=== PATIENT | female | born 1935 | race Caucasian/White ===

== ENCOUNTER 2016-06-25 14:57 | Emergency (ER) | payer MEDICARE, MEDICAID ==
[2016-06-25 15:11] VITALS: BP 135/80
[2016-06-25] MEDS ORDERED: Sodium Chloride 0.9% 1,000 ML IV ONE ×2 (16:29→17:31)
--- NOTE | 2016-06-25 16:37 | EDM.PDOC ---
ED HPI GENERAL MEDICAL PROBLEM - General Chief Complaint: General Stated Complaint: [facility] Time Seen by Provider: 06/25/16 16:05 Source of Information: Reports: custodial records, RN notes reviewed History Limitations: Reports: Altered Mental Status - History of Present Illness INITIAL COMMENTS - FREE TEXT/NARRATIVE: According to the [facility] papers, the patient was diagnosed with influenza B on 06/18/2016. She completed a five-day course of Tamiflu, apparently without improvement in her symptoms. She now presents to the ED with a report from the [facility] with difficulty swallowing, acute kidney injury, and elevated INR/PT on the labs obtained today. Reviewing the patient's lab work, we find that the patient has a WBC count of 14.9, with no differential. Hemoglobin is elevated at 16.2 with hematocrit elevated at 49.8. Platelets are within normal limits. A basic metabolic panel demonstrates sodium elevated at 154, potassium depressed at 2.5. BUN is elevated at 213 with a creatinine elevated at 5.3. Blood glucose is elevated at 317. Calcium is elevated at 10.7. The patient's INR is elevated at >7.0 with a protime elevated at >75.0. A BNP is modestly elevated at 293. A portable chest radiograph is read as "Pacemaker generator and generator leads unchanged. Mild cardiac enlargement. Normal vasculature. No acute infiltrate or pleural fluid." - Related Data Allergies Allergy/AdvReac Type Severity Reaction Status Date / Time No Known Allergies Allergy Verified 06/25/16 15:12 Home Meds: Home Meds Allopurinol [Zyloprim] 150 mg PO DAILY 06/25/15 [History] Carvedilol [Coreg] 25 mg PO BID 06/25/15 [History] Warfarin Sodium [Coumadin] 2.5 mg PO ASDIRECTED 06/25/15 [History] Warfarin Sodium [Coumadin] 5 mg PO WE 06/25/15 [History] Acetaminophen [Tylenol Arthritis] 650 mg PO BID 04/02/16 [History] Ammonia Solution, Strong/MSM [Penetran + Plus 1.5%] applic TOP TID 04/02/16 [ History] Ascorbic Acid [Vitamin C] 125 mg PO DAILY 04/02/16 [History] Cetirizine [ZyrTEC] 10 mg PO DAILY 04/02/16 [History] Cholecalciferol (Vitamin D3) [Vitamin D3] 3,000 units PO DAILY 04/02/16 [History ] Cyclobenzaprine [Flexeril] 5 mg PO BID 04/02/16 [History] Docusate Sodium/Sennosides [Senna Plus] 2 tab PO ASDIRECTED PRN 04/02/16 [ History] Donepezil HCl [Aricept] 15 mg PO DAILY 04/02/16 [History] Furosemide [Lasix] 20 mg PO BID 04/02/16 [History] Insulin Lispro Prot/Lispro [HumaLOG Mix 75-25] 5 units SUBCUT DAILY 04/02/16 [ History] Insulin Lispro Prot/Lispro [HumaLOG Mix 75-25] 7 units SUBCUT DAILY 04/02/16 [ History] Sertraline [Zoloft] 50 mg PO DAILY 04/02/16 [History] atorvaSTATin [Lipitor] 20 mg PO DAILY 04/02/16 [History] traMADol [Ultram] 50 mg PO BID 04/02/16 [History] Colchicine 0.6 mg PO ASDIRECTED 06/25/16 [History] Febuxostat [Uloric] 40 mg PO DAILY 06/25/16 [History] Losartan [Cozaar] 25 mg PO DAILY 06/25/16 [History] Metolazone 5 mg PO WE 06/25/16 [History] Oseltamivir [Tamiflu] 75 mg PO BID 06/25/16 [History] Past Medical History HEENT History: Reports: Allergic rhinitis, Hard of hearing, Impaired vision Cardiovascular History: Reports: Blood clots/VTE/DVT, Heart Failure, High cholesterol, Hypertension, PVD Respiratory History: Reports: PE Genitourinary History: Reports: Chronic renal insuffiency, Urinary incontinence Musculoskeletal History: Reports: Gout, Osteoarthritis, Osteoporosis Neurological History: Reports: Other (see below) (Dementia) Psychiatric History: Reports: Depression Endocrine/Metabolic History: Reports: Diabetes, type II Hematologic History: Reports: Anemia, Iron deficiency - Past Surgical History HEENT Surgical History: Reports: Cataract surgery GI Surgical History: Reports: Cholecystectomy Female Surgical History: Reports: Hysterectomy Musculoskeletal Surgical History: Reports: Knee replacement Social & Family History - Family History Cardiac: Reports: Other (see below) Other Cardiac Family History: two sisters of heart problems - Tobacco Use Smoking Status *Q: Former Smoker Used Tobacco, but Quit: Yes Month Tobacco Last Used: 1962 - Recreational Drug Use Recreational Drug Use: No - Living Situation & Occupation Living situation: Reports: alone Occupation: retired (Residing in [facility] which is a assisted-living [facility].) ED ROS GENERAL - Review of Systems Review Of Systems: Unable To Obtain ED EXAM, GENERAL - Physical Exam Exam: See Below Exam Limited By: No Limitations General Appearance: WD/WN, No Apparent Distress Eye Exam: Bilateral Eye: Normal Inspection Ears: Normal External Exam, Hearing Grossly Normal Ear Exam: Bilateral Ear: Auricle Normal Nose: Normal Inspection, No Blood Throat/Mouth: Normal Inspection, Normal Lips, No Airway Compromise Head: Atraumatic, Normocephalic Neck: Normal Inspection, Full Range of Motion Respiratory/Chest: No Respiratory Distress, Lungs Clear, Normal Breath Sounds, No Accessory Muscle Use Cardiovascular: Normal Peripheral Pulses, Regular Rate, Rhythm, No Gallop, No JVD, No Murmur, No Rub Peripheral Pulses: 4+: Radial (L), Radial (R) GI/Abdominal: Normal Bowel Sounds, Soft, Non-Tender, No Organomegaly, No Distention, No Abnormal Bruit, No Mass (Female) Exam: Deferred Rectal (Female) Exam: Deferred Back Exam: Normal Inspection, Full Range of Motion, NT Extremities: Normal Inspection, Normal Range of Motion, Normal Capillary Refill , Other (Bilateral knee-high TEDS hose on) Neurological: No Motor/Sensory Deficits Psychiatric: Normal Affect Skin Exam: Warm, Dry, Intact, Normal Color, No Rash Lymphatic: No Adenopathy EKG INTERPRETATION EKG Date: 06/25/16 Time: 16:52 Rhythm: other (Atrially sensed, ventricularly paced) Rate (beats/min): 84 Comparison: NA - no prior EKG Course - Vital Signs Last Recorded V/S: Last Vital Signs Temp 36.3 C 06/25/16 15:06 Pulse 87 06/25/16 15:06 Resp 16 06/25/16 15:06 BP 135/80 06/25/16 15:06 Pulse Ox 95 06/25/16 15:06 - Orders/Labs/Meds Orders: Active Orders 24 hr Category Date Time Status EKG Documentation Completion [RC] STAT Care 06/25/16 16:29 Active Chest 1V Frontal [CR] Stat Exams 06/25/16 16:27 Taken CBC WITH AUTO DIFF [HEME] Stat Lab 06/25/16 16:03 Results CBC WITH MANUAL DIFF [HEME] Stat Lab 06/25/16 16:03 Results CULTURE BLOOD [BC] Stat Lab 06/25/16 16:03 Received CULTURE BLOOD [BC] Stat Lab 06/25/16 16:09 Received CULTURE URINE [RM] Stat Lab 06/25/16 16:45 Received Levofloxacin/Dextrose 5%-Water [Levaquin in D5W 250 MG/ Med 06/25/16 18:17 Active 50 ML] 250 mg Premix Bag 1 bag IV ONETIME Potassium Chloride [KCl 10 MEQ in Water 100 ML] 10 meq Med 06/25/16 16:45 Active Premix Bag 1 bag IV Q1H Sodium Chloride 0.9% [Normal Saline] 1,000 ml Med 06/25/16 17:15 Active IV ASDIRECTED Medication Orders Potassium Chloride 10 meq/ (Premix) 100 mls @ 100 mls/hr IV Q1H AARON Stop: 06/25/16 20:44 Last Admin: 06/25/16 18:46 Dose: 100 mls/hr Infusion: 06/25/16 18:46 Dose: 100 mls/hr Admin: 06/25/16 18:24 Dose: 100 mls/hr Infusion: 06/25/16 18:24 Dose: 100 mls/hr Admin: 06/25/16 17:25 Dose: 100 mls/hr Sodium Chloride (Normal Saline) 1,000 mls @ 100 mls/hr IV ASDIRECTED AARON Last Admin: 06/25/16 17:25 Dose: 100 mls/hr Levofloxacin/Dextrose 250 mg/ (Premix) 50 mls @ 50 mls/hr IV ONETIME ONE Stop: 06/25/16 19:16 Last Admin: 06/25/16 18:45 Dose: 50 mls/hr Labs: Laboratory Tests 06/25/16 06/25/16 06/25/16 Range/Units 16:03 16:03 16:03 WBC 14.82 H (3.98-10.04) K/mm3 RBC 5.10 (3.98-5.22) M/mm3 Hgb 16.0 H (11.2-15.7) gm/L Hct 50.2 H (34.1-44.9) % MCV 98.4 H (79.4-94.8) fl MCH 31.4 (25.6-32.2) pg MCHC 31.9 L (32.2-35.5) g/dl RDW Std Deviation 50.5 H (36.4-46.3) fL Plt Count 284 (182-369) K/mm3 MPV 10.4 (9.4-12.3) fl Neut % (Auto) 79.5 H (34.0-71.1) % Lymph % (Auto) 13.9 L (19.3-51.7) % [place] % (Auto) 5.8 (4.7-12.5) % Eos % (Auto) 0.3 L (0.7-5.8) Baso % (Auto) 0.1 (0.1-1.2) % Neut # (Auto) 11.79 H (1.56-6.13) K/mm3 Lymph # (Auto) 2.06 (1.18-3.74) K/mm3 [place] # (Auto) 0.86 H (0.24-0.36) K/mm3 Eos # (Auto) 0.04 (0.04-0.36) K/mm3 Baso # (Auto) 0.01 (0.01-0.08) K/mm3 PT (8.0-13.0) SECONDS INR APTT (22-36) SECONDS Sodium 153 H (136-145) mEq/L Potassium 2.4 L* (3.5-5.1) mEq/L Chloride 109 H (98-107) mEq/L Carbon Dioxide 34 H (21-32) mEq/L Anion Gap 12.4 (5-15) BUN 224 H (7-18) mg/dL Creatinine 5.2 H (0.55-1.02) mg/dL Est Cr Clr Drug Dosing 8.72 mL/min Estimated GFR (MDRD) 8 (>60) mL/min BUN/Creatinine Ratio 43.1 H (14-18) Glucose 174 H (83-115) mg/dL Lactic Acid (0.4-2.0) mmol/L Calcium 10.8 H (8.5-10.1) mg/dL Magnesium 3.1 H (1.8-2.4) mg/dl Total Bilirubin (0.2-1.0) mg/dL Direct Bilirubin (0.0-0.2) mg/dl Indirect Bilirubin AST (15-37) U/L ALT (14-59) U/L Alkaline Phosphatase (46-116) U/L Troponin I 0.649 H* (0.00-0.056) ng/mL Total Protein (6.4-8.2) g/dl Albumin (3.4-5.0) g/dl Globulin gm/dL Albumin/Globulin Ratio (1-2) Urine Color (Yellow) Urine Appearance (Clear) Urine pH (5.0-8.0) Ur Specific [place] (1.005-1.030) Urine Protein (Negative) Urine Glucose (UA) (Negative) Urine Ketones (Negative) Urine Occult Blood (Negative) Urine Nitrite (Negative) Urine Bilirubin (Negative) Urine Urobilinogen (0.2-1.0) Ur Leukocyte Esterase (Negative) Urine RBC (0-5) /hpf Urine WBC (0-5) /hpf Ur Epithelial Cells (0-5) /hpf Amorphous Sediment (NOT SEEN) /hpf Urine Bacteria (FEW) /hpf Broad Casts Urine Mucus (FEW) /hpf 06/25/16 06/25/16 06/25/16 Range/Units 16:03 16:03 16:45 WBC (3.98-10.04) K/mm3 RBC (3.98-5.22) M/mm3 Hgb (11.2-15.7) gm/L Hct (34.1-44.9) % MCV (79.4-94.8) fl MCH (25.6-32.2) pg MCHC (32.2-35.5) g/dl RDW Std Deviation (36.4-46.3) fL Plt Count (182-369) K/mm3 MPV (9.4-12.3) fl Neut % (Auto) (34.0-71.1) % Lymph % (Auto) (19.3-51.7) % [place] % (Auto) (4.7-12.5) % Eos % (Auto) (0.7-5.8) Baso % (Auto) (0.1-1.2) % Neut # (Auto) (1.56-6.13) K/mm3 Lymph # (Auto) (1.18-3.74) K/mm3 [place] # (Auto) (0.24-0.36) K/mm3 Eos # (Auto) (0.04-0.36) K/mm3 Baso # (Auto) (0.01-0.08) K/mm3 PT (8.0-13.0) SECONDS INR APTT (22-36) SECONDS Sodium (136-145) mEq/L Potassium (3.5-5.1) mEq/L Chloride (98-107) mEq/L Carbon Dioxide (21-32) mEq/L Anion Gap (5-15) BUN (7-18) mg/dL Creatinine (0.55-1.02) mg/dL Est Cr Clr Drug Dosing mL/min Estimated GFR (MDRD) (>60) mL/min BUN/Creatinine Ratio (14-18) Glucose (83-115) mg/dL Lactic Acid 1.6 (0.4-2.0) mmol/L Calcium (8.5-10.1) mg/dL Magnesium (1.8-2.4) mg/dl Total Bilirubin 0.3 (0.2-1.0) mg/dL Direct Bilirubin 0.10 (0.0-0.2) mg/dl Indirect Bilirubin 0.20 AST 47 H (15-37) U/L ALT 32 (14-59) U/L Alkaline Phosphatase 92 (46-116) U/L Troponin I (0.00-0.056) ng/mL Total Protein 7.7 (6.4-8.2) g/dl Albumin 3.5 (3.4-5.0) g/dl Globulin 4.2 gm/dL Albumin/Globulin Ratio 0.8 L (1-2) Urine Color Brown H (Yellow) Urine Appearance Turbid H (Clear) Urine pH 8.5 H (5.0-8.0) Ur Specific [place] 1.015 (1.005-1.030) Urine Protein 3+ H (Negative) Urine Glucose (UA) Negative (Negative) Urine Ketones Trace H (Negative) Urine Occult Blood 3+ H (Negative) Urine Nitrite Positive H (Negative) Urine Bilirubin 2+ H (Negative) Urine Urobilinogen 1.0 (0.2-1.0) Ur Leukocyte Esterase 3+ H (Negative) Urine RBC 20-30 H (0-5) /hpf Urine WBC 5-10 H (0-5) /hpf Ur Epithelial Cells Not seen (0-5) /hpf Amorphous Sediment Many H (NOT SEEN) /hpf Urine Bacteria Many H (FEW) /hpf Broad Casts Rare Urine Mucus Not seen (FEW) /hpf 06/25/16 Range/Units 17:20 WBC (3.98-10.04) K/mm3 RBC (3.98-5.22) M/mm3 Hgb (11.2-15.7) gm/L Hct (34.1-44.9) % MCV (79.4-94.8) fl MCH (25.6-32.2) pg MCHC (32.2-35.5) g/dl RDW Std Deviation (36.4-46.3) fL Plt Count (182-369) K/mm3 MPV (9.4-12.3) fl Neut % (Auto) (34.0-71.1) % Lymph % (Auto) (19.3-51.7) % [place] % (Auto) (4.7-12.5) % Eos % (Auto) (0.7-5.8) Baso % (Auto) (0.1-1.2) % Neut # (Auto) (1.56-6.13) K/mm3 Lymph # (Auto) (1.18-3.74) K/mm3 [place] # (Auto) (0.24-0.36) K/mm3 Eos # (Auto) (0.04-0.36) K/mm3 Baso # (Auto) (0.01-0.08) K/mm3 PT > 148.7 H* (8.0-13.0) SECONDS INR TNP APTT 80 H (22-36) SECONDS Sodium (136-145) mEq/L Potassium (3.5-5.1) mEq/L Chloride (98-107) mEq/L Carbon Dioxide (21-32) mEq/L Anion Gap (5-15) BUN (7-18) mg/dL Creatinine (0.55-1.02) mg/dL Est Cr Clr Drug Dosing mL/min Estimated GFR (MDRD) (>60) mL/min BUN/Creatinine Ratio (14-18) Glucose (83-115) mg/dL Lactic Acid (0.4-2.0) mmol/L Calcium (8.5-10.1) mg/dL Magnesium (1.8-2.4) mg/dl Total Bilirubin (0.2-1.0) mg/dL Direct Bilirubin (0.0-0.2) mg/dl Indirect Bilirubin AST (15-37) U/L ALT (14-59) U/L Alkaline Phosphatase (46-116) U/L Troponin I (0.00-0.056) ng/mL Total Protein (6.4-8.2) g/dl Albumin (3.4-5.0) g/dl Globulin gm/dL Albumin/Globulin Ratio (1-2) Urine Color (Yellow) Urine Appearance (Clear) Urine pH (5.0-8.0) Ur Specific [place] (1.005-1.030) Urine Protein (Negative) Urine Glucose (UA) (Negative) Urine Ketones (Negative) Urine Occult Blood (Negative) Urine Nitrite (Negative) Urine Bilirubin (Negative) Urine Urobilinogen (0.2-1.0) Ur Leukocyte Esterase (Negative) Urine RBC (0-5) /hpf Urine WBC (0-5) /hpf Ur Epithelial Cells (0-5) /hpf Amorphous Sediment (NOT SEEN) /hpf Urine Bacteria (FEW) /hpf Broad Casts Urine Mucus (FEW) /hpf Meds: Medications Generic Name Dose Route Start Last Admin Trade Name Freq PRN Reason Stop Dose Admin Potassium Chloride 10 meq/ 100 mls @ 100 mls/hr 06/25/16 16:45 06/25/16 18:46 Premix IV 06/25/16 20:44 100 mls/hr Q1H AARON Administration Sodium Chloride 1,000 mls @ 100 mls/hr 06/25/16 17:15 06/25/16 17:25 Normal Saline IV 100 mls/hr ASDIRECTED AARON Administration Levofloxacin/Dextrose 250 mg/ 50 mls @ 50 mls/hr 06/25/16 18:17 06/25/16 18: 45 Premix IV 06/25/16 19:16 50 mls/hr ONETIME ONE Administration Discontinued Medications Generic Name Dose Route Start Last Admin Trade Name Freq PRN Reason Stop Dose Admin Sodium Chloride 1,000 mls @ 999 mls/hr 06/25/16 16:29 06/25/16 16:51 Normal Saline IV 06/25/16 17:29 999 mls/hr ONETIME ONE Administration Sodium Chloride 1,000 mls @ 999 mls/hr 06/25/16 17:31 06/25/16 17:41 Normal Saline IV 06/25/16 18:31 999 mls/hr ONETIME ONE Administration - Radiology Interpretation Free Text/Narrative:: Portable chest radiograph does not appear to demonstrate any acute abnormalities. Cardiac silhouette is at the upper limits of normal. No pulmonary vascular congestion. No pleural effusions. No focal infiltrate. No pneumothorax. A left-sided dual-chamber pacemaker is noted low on the left side. Formal read per the Radiologist pending. - Re-Assessments/Exams Free Text/Narrative Re-Assessment/Exam: 06/25/16 18:18 The patient's urinalysis is consistent with a UTI. I have ordered a urine culture, and will start the patient on Levaquin 250 mg IV. 06/25/16 18:27 Today's workup finds hypernatremia due to dehydration, and elevated BUN/Cr due to intravascular depletion. She is hypokalemic. These findings are likely due to continued oral Lasix despite poor oral intake. Her troponin is elevated, likely due to the acute renal insufficiency. Her PTT and INR substantially elevated, also likely due to continued Coumadin administration while intravascularly depleted. Her troponin is mildly elevated, likely due to the renal insufficiency. She is hyperglycemic, although has a history of diabetes. Lastly, she appears to have a urinary tract infection. The patient has received 2 L of normal saline, and is continuing to receive IV potassium chloride. She has been started on IV Levaquin. She will require admission to the hospital to correct all of the above abnormalities, however, no beds are available at this facility, therefore she will need to be transferred to [facility]. 06/25/16 19:[address] Valentine, Hospitalist at [facility], at 19: 05. She accepts the patient for transfer. She would like us to give 5 mg vitamin K IV. Departure - Departure Time of Disposition: 19:14 Disposition: DC/Tfer to Acute Hospital 02 Condition: fair Clinical Impression: Dehydration, Acute on chronic renal failure, Hypokalemia, Coagulopathy - Discharge Information - My Orders Last 24 Hours: My Active Orders 06/25/16 16:03 CBC WITH AUTO DIFF [HEME] Stat CULTURE BLOOD [BC] Stat 06/25/16 16:09 CULTURE BLOOD [BC] Stat 06/25/16 16:27 Chest 1V Frontal [CR] Stat 06/25/16 16:29 EKG Documentation Completion [RC] STAT 06/25/16 16:45 CULTURE URINE [RM] Stat Potassium Chloride [KCl 10 MEQ in Water 100 ML] 10 meq Premix Bag 1 bag IV Q1H 06/25/16 17:15 Sodium Chloride 0.9% [Normal Saline] 1,000 ml IV ASDIRECTED 06/25/16 18:17 Levofloxacin/Dextrose 5%-Water [Levaquin in D5W 250 MG/50 ML] 250 mg Premix Bag 1 bag IV ONETIME - Assessment/Plan Last 24 Hours: My Active Orders 06/25/16 16:03 CBC WITH AUTO DIFF [HEME] Stat CULTURE BLOOD [BC] Stat 06/25/16 16:09 CULTURE BLOOD [BC] Stat 06/25/16 16:27 Chest 1V Frontal [CR] Stat 06/25/16 16:29 EKG Documentation Completion [RC] STAT 06/25/16 16:45 CULTURE URINE [RM] Stat Potassium Chloride [KCl 10 MEQ in Water 100 ML] 10 meq Premix Bag 1 bag IV Q1H 06/25/16 17:15 Sodium Chloride 0.9% [Normal Saline] 1,000 ml IV ASDIRECTED 06/25/16 18:17 Levofloxacin/Dextrose 5%-Water [Levaquin in D5W 250 MG/50 ML] 250 mg Premix Bag 1 bag IV ONETIME
[2016-06-25] MEDS ORDERED: Sodium Chloride 0.9% 1,000 ML IV SCH (17:15)
[2016-06-25] MEDS: Potassium Chloride 10 MEQ in Premix Bag 1 BAG IV SCH ×4 (17:25→19:43)
[2016-06-25] MEDS ORDERED: Levofloxacin/Dextrose 5%-Water 250 MG in Premix Bag 1 BAG IV ONE (18:17)
[2016-06-25] MEDS ORDERED: Phytonadione 5 MG in Sodium Chloride 0.9% 50 ML IV ONE (19:10)
--- NOTE | 2016-06-26 07:02 | CR ---
Chest: Portable view of the chest was obtained. Comparison: No previous study. Scoliosis is present within the spine. Pacemaker is noted. Surgical clips are seen within the upper right abdomen. Lungs are clear with no acute infiltrates. Heart size is normal. Mild tortuosity of the thoracic aorta is seen. Impression: 1. Nothing acute is seen on portable chest x-ray. Diagnostic code #2
== END 2016-06-25 20:50 ==
LOC: JD.ED 14:57
DX: N39.0 Urinary tract infection, site not specified (principal); E87.0 Hyperosmolality and hypernatremia; E87.6 Hypokalemia; E86.0 Dehydration; R13.10 Dysphagia, unspecified; R79.1 Abnormal coagulation profile; E11.65 Type 2 diabetes mellitus with hyperglycemia; I12.9 Hypertensive chronic kidney disease with stage 1 through stage 4 chronic kidney disease, or unspecified chronic kidney disease; E11.22 Type 2 diabetes mellitus with diabetic chronic kidney disease; E78.00 Pure hypercholesterolemia, unspecified; D50.9 Iron deficiency anemia, unspecified; M10.9 Gout, unspecified; R41.82 Altered mental status, unspecified; F32.9 Major depressive disorder, single episode, unspecified; J30.9 Allergic rhinitis, unspecified; Z79.01 Long term (current) use of anticoagulants; Z79.899 Other long term (current) drug therapy; Z79.84 Long term (current) use of oral hypoglycemic drugs; Z86.711 Personal history of pulmonary embolism; Z86.718 Personal history of other venous thrombosis and embolism; Z95.0 Presence of cardiac pacemaker; Z87.891 Personal history of nicotine dependence; Z96.659 Presence of unspecified artificial knee joint
CPT/HCPCS: 36415; 51702; 71010; 80048; 80076; 81001; 83605; 83735; 84484; 85025; 85610; 85730; 87040; 87086; 87088; 87186; 93005; 96361; 96365; 96366; 96368; 99285; J1956; J3430; J3480; J7040; J7050; P9612